=== PATIENT | female | born 1970 | race Caucasian/White ===

== ENCOUNTER → 2023-10-07 12:39 | Outpatient (REF) | payer BC, SELFPAY | LOC: HWRAD 12:39 | PROVIDERS: ATTENDING PHYSICIAN Registered Nurse | DX: E06.3 Autoimmune thyroiditis (principal); Z78.0 Asymptomatic menopausal state | CPT/HCPCS: 76536; 77080 ==

== ENCOUNTER → 2025-01-15 07:51 | Outpatient (REF) | payer BC, SELFPAY | LOC: HWRAD 07:51 | PROVIDERS: ATTENDING PHYSICIAN Physician Assistant; FAMILY PHYSICIAN Emergency Medicine | DX: R31.29 Other microscopic hematuria (principal) | CPT/HCPCS: 76770 ==

== ENCOUNTER → 2025-02-07 06:34 | Outpatient (REF) | payer BC, SELFPAY | LOC: HWWDC 06:34 | PROVIDERS: ATTENDING PHYSICIAN Emergency Medicine | DX: E04.1 Nontoxic single thyroid nodule (principal); Z12.31 Encounter for screening mammogram for malignant neoplasm of breast | CPT/HCPCS: 76536; 77063; 77067 ==